=== PATIENT | male | born 1965 | race Hispanic/Latino ===

== ENCOUNTER 2019-10-19 20:13 | Emergency (ER) | payer SELFPAY ==
[~2019-10-19] VITALS: Ht 152.4 cm; Wt 61.7 kg
[~2019-10-19 20:13] MED LIST: IOPAMIDOL 370 MG/ML 50ML INFUS..BTL INJ ONE; SODIUM CHLORIDE 0.9% INJ 50 ML BAG ONE
[2019-10-19] MEDS ORDERED: DIATRIZOATE MEGL/DIATRIZOA SOD 30 ML BTL PO ONE (21:23)
[2019-10-19 23:20] LABS: BASOPHILS # (AUTO) 0.1 (0.0-0.1); BASOPHILS % 0.8 % (0.0-1.0); EOSINOPHILS # (AUTO) 0.6 (0.0-0.4); EOSINOPHILS % 7.5 % (0.0-6.0); HEMATOCRIT 40.9 % (38.2-49.6); HEMOGLOBIN 13.7 g/dL (14.0-18.0); LYMPHOCYTES # (AUTO) 1.9 (1.0-3.2); LYMPHOCYTES % 22.5 % (18.0-39.1); MEAN CORPUSCULAR HEMOGLOBIN 30.7 pg (28-32); MEAN CORPUSCULAR HGB CONC 33.5 g/dL (31-35); MEAN CORPUSCULAR VOLUME 91.7 fL (81-99); MONOCYTES # (AUTO) 0.8 (0.2-0.8); MONOCYTES % 9.5 % (4.4-11.3); NEUTROPHILS # (AUTO) 5.1 (2.1-6.9); NEUTROPHILS % 59.3 % (38.7-80.0); PLATELET COUNT 283 x10e3/uL (140-360); RED BLOOD COUNT 4.46 x10e6/uL (4.3-5.7); RED CELL DISTRIBUTION WIDTH 12.9 % (11.7-14.4)
[2019-10-19 23:40] LABS: ALANINE AMINOTRANSFERASE 32 IU/L (0-55); ALBUMIN 3.3 g/dL (3.5-5.0); ALKALINE PHOSPHATASE 87 IU/L (40-150); ANION GAP 10.1 mmol/L (8-16); BLOOD UREA NITROGEN 13 mg/dL (7-26); BUN/CREATININE RATIO 15 (6-25); CALCIUM 9.4 mg/dL (8.4-10.2); CARBON DIOXIDE 29 mmol/L (22-29); CHLORIDE 106 mmol/L (98-107); CREATININE, SERUM 0.88 mg/dL (0.72-1.25); EST GLOMERULAR FILTRATION RATE > 60 ML/MIN (60-); GLUCOSE 98 mg/dL (74-118); POTASSIUM 4.1 mmol/L (3.5-5.1); SODIUM 141 mmol/L (136-145)
[2019-10-20 00:14] LABS: CLARITY,URINE CLEAR (CLEAR); COLOR,URINE YELLOW (YELLOW); LEUKOCYTE ESTERASE ,URINE NEGATIVE (NEGATIVE); NITRITE,URINE NEGATIVE (NEGATIVE)
[2019-10-20 00:15] LABS: BILIRUBIN,URINE NEGATIVE (NEGATIVE); KETONES,URINE NEGATIVE (NEGATIVE); PROTEIN,URINE DIPSTICK NEGATIVE (NEGATIVE); URINE UROBILINOGEN 0.2 mg/dL (0.2 - 1)
[2019-10-20 00:34] LABS: BACTERIA,URINE RARE /HPF; EPITHELIAL CELLS,URINE RARE /LPF; RBC,URINE 0-5 /HPF (0-5); WBC,URINE (MAN) 0-5 /HPF (0-5)
--- NOTE | 2019-10-20 02:40 | Diagnostic Imaging Report ---
EXAM: CT Abdomen and Pelvis WITH contrast INDICATION: Rectal pain. COMPARISON: TECHNIQUE: Abdomen and pelvis were scanned utilizing a multidetector helical scanner from the lung base to the pubic symphysis after administration of IV contrast. Coronal and sagittal reformations were obtained. Routine protocol was performed. Scan was performed when during portal venous phase. IV CONTRAST: 100 cc of Isovue-[id number]. ORAL CONTRAST: Gastrografin COMPLICATIONS: None RADIATION DOSE: Total DLP: (DLP x 0.015 x size factor) mGy*cm Estimated effective dose: (DLP x 0.015 x size factor) mSv CTDIvol has been reviewed. It is below the limits set by the Radiation Protocol Committee (RPC). FINDINGS: LINES and TUBES: None. LOWER THORAX: Numerous lung nodules at the lung bases, largest measuring up to 1.2 cm and 0.9 cm in the left lower lobe. A 1.2 cm left lower lobe nodule is mildly hyperdense. Numerous other smaller pulmonary nodules in the right middle lobe, lingula, and bilateral lower lobes. HEPATOBILIARY: Multiple hypodense liver lesions, largest measuring up to 3.5 cm in the right hepatic dome, and 1.6 cm in the left hepatic lobe. GALLBLADDER: No radio-opaque stones or sludge. No wall thickening. SPLEEN: No splenomegaly. PANCREAS: No focal masses or ductal dilatation. ADRENALS: No adrenal nodules KIDNEYS/URETERS: Kidneys enhance symmetrically. No evidence of hydronephrosis, solid mass, or stone. GI TRACT: There is significant bulky thickening of the rectum, measuring up to 2.6 cm, most pronounced was sterilely. There is more diffuse thickening throughout the lower sigmoid colon and rectum with surrounding inflammatory changes in the perirectal fat. Moderate amount of stool in the colon. No evidence of bowel obstruction. PELVIC ORGANS/BLADDER: The bladder is partially decompressed with asymmetric thickening of the posterior aspect of the bladder, measuring up to 1.6 cm. There is also diffuse mild circumferential thickening of the bladder which may represent cystitis. The prostate is enlarged and heterogeneous, measuring up to 5.1 x 5.4 cm. There are surrounding inflammatory changes. LYMPH NODES: Bulky retroperitoneal lymphadenopathy, for example confluent lymphadenopathy in the left periaortic location, measuring up to 2.1 x 1.8 cm on series 2, image 43, left external iliac lymphadenopathy, measuring up to 1.5 cm short axis on image 59, right pelvic wall/external iliac lymphadenopathy, measuring up to 1.5 cm short axis on image 68, right external iliac lymphadenopathy, measuring up to 2.2 cm short axis on image 65, right inguinal lymphadenopathy, measuring up to 1.6 cm on the right VESSELS: Unremarkable. PERITONEUM / RETROPERITONEUM: No free air or fluid. BONES AND SOFT TISSUES: No acute osseous abnormality. No suspicious lytic or blastic lesions. CONCLUSION: Findings consistent with metastatic disease with multifocal lymphadenopathy, hepatic and pulmonary metastases. The primary malignancy is likely rectal given the asymmetric bulky rectal thickening. However, there is also prostatomegaly with surrounding inflammatory changes and asymmetric thickening of the posterior wall of the bladder. This may be related to primary extension from the rectal mass, or less likely a primary prostate or bladder malignancy. Recommend tissue diagnosis, the pelvic lymphadenopathy or hepatic lesions would be amenable to biopsy. Recommend staging chest CT and/or PET/CT. Signed by: Dr. Maxime Lin MD on 10/20/2019 2:37 AM
--- NOTE | 2019-10-20 03:22 | NUR ---
Results being discussed with patient through ge[place]ian language line by Dr. Aguayo.
== END 2019-10-20 05:16 | disposition home or self-care (01) ==
LOC: ER 20:13
DX: K62.89 Other specified diseases of anus and rectum (principal); R10.9 Unspecified abdominal pain; C78.00 Secondary malignant neoplasm of unspecified lung; C78.7 Secondary malignant neoplasm of liver and intrahepatic bile duct
CPT/HCPCS: 36415; 74177; 80053; 81001; 85025; 99283; Q9967